=== PATIENT | male | born 1960 | race Caucasian/White ===

== ENCOUNTER → 2019-03-04 | Outpatient (CLI) | payer BC ==
[~2019-03-04] MED LIST: ZESTRIL 20MG TA20 MG PO
== END ==
LOC: COL.RAD 07:26
DX: G31.9 Degenerative disease of nervous system, unspecified (principal); F03.90 Unspecified dementia, unspecified severity, without behavioral disturbance, psychotic disturbance, mood disturbance, and anxiety
CPT/HCPCS: A9585

== ENCOUNTER 2021-06-20 14:25 | Outpatient (CLI) | payer BC ==
[2021-06-20] MEDS ORDERED: COZAAR 50MG50 MG/TAB PO (14:45)
[2021-06-20] MEDS ORDERED: NAMENDA XR 7 PO (14:46)
[2021-06-20] MEDS ORDERED: ARICEPT ODT10 MG PO (14:46)
[2021-06-20 15:06] VITALS: BP 124/69; PULSE 91; TEMP 99.5
[2021-06-20 15:16] VITALS: BP 124/69; PULSE 65; TEMP 99.5
== END 2021-06-20 18:09 ==
LOC: EUO 14:25
DX: U07.1 COVID-19 (principal)
CPT/HCPCS: Q0244